=== PATIENT | male | born 1980 | race African-American/Black ===

== ENCOUNTER 2017-09-13 12:13 | Emergency (ER) | payer BC ==
[2017-09-13] MEDS ORDERED: Sodium Chloride 0.9% 10 ML Syringe FLUSH PRN ×2 (12:53→13:05)
[2017-09-13] MEDS ORDERED: Sodium Chloride 0.9% 1,000 ML IV SCH (13:00)
[2017-09-13] MEDS ORDERED: Iopamidol 612 MG/ML 150 ML Bottle IVPUSH ONE (13:05)
[2017-09-13] MEDS ORDERED: Diatrizoate Meglumine/Diatrizoate Sodium 37% 120 ML Bottle PO ONE (14:14)
--- NOTE | 2017-09-13 15:32 | CT ---
CT abdomen and pelvis Technique: Multiple axial sections were obtained from above the dome of the diaphragm inferiorly through the pubic symphysis. Intravenous and oral contrast was utilized. Delayed images were obtained through the bladder. Comparison: Small portion of the visualized lung bases are clear. Liver shows no focal parenchymal abnormality. Spleen appears within normal limits. Adrenal glands show no nodule. Pancreas is within normal limits. Kidneys show contrast-enhancement without hydronephrosis or mass. Aorta shows no aneurysmal dilatation. Gallbladder contains no calcified gallstones. No retroperitoneal adenopathy or mesenteric abnormalities are seen. No pelvic mass or adenopathy is seen. No bowel wall thickening is identified. Perirectal soft tissues are within normal limits. Appendix is seen which is normal in size. Delayed images shows contrast within the distal ureters and within the bladder. Bone window settings were reviewed which appears within normal limits for the patient's age. Impression: 1. No abnormality is identified on CT study of the abdomen and pelvis. Diagnostic code #1
--- NOTE | 2017-09-13 15:55 | EDM.PDOC ---
ED HPI GENERAL MEDICAL PROBLEM - General Chief Complaint: Gastrointestinal Problem Stated Complaint: RECTAL BLEED Time Seen by Provider: 09/13/17 12:26 Source of Information: Reports: Patient History Limitations: Reports: No Limitations - History of Present Illness INITIAL COMMENTS - FREE TEXT/NARRATIVE: The patient presents with rectal bleeding. He says this morning he woke up with blood in his bed. He has pain to the right rectal area. He has trouble with constipation. He denies fever, chills, cough, congestion, runny nose, chest pain, shortness of breath, nausea and vomiting. He does have some lower abdominal pain that is mild. He has some rectal pain and he feel a lump on the right side. Onset: Gradual Duration: Day(s): (3) Location: Reports: Abdomen Quality: Reports: Sharp Severity: Mild Improves with: Reports: None Worsens with: Reports: None Associated Symptoms: Denies: Chest Pain, Cough, Fever/Chills, Headaches, Nausea/ Vomiting, Shortness of Breath - Related Data Allergies Allergy/AdvReac Type Severity Reaction Status Date / Time No Known Allergies Allergy Verified 09/13/17 12:24 Home Meds: Home Meds . [No Known Home Meds] 09/13/17 [History] Past Medical History - Past Health History Medical/Surgical History: Denies Medical/Surgical History Social & Family History - Tobacco Use Smoking Status *Q: Never Smoker - Recreational Drug Use Recreational Drug Use: No ED ROS GENERAL - Review of Systems Review Of Systems: See Below Constitutional: Reports: No Symptoms HEENT: Reports: No Symptoms Respiratory: Reports: No Symptoms Cardiovascular: Reports: No Symptoms Endocrine: Reports: No Symptoms GI/Abdominal: Reports: Abdominal Pain. Denies: Nausea, Vomiting : Reports: No Symptoms Musculoskeletal: Reports: No Symptoms ED EXAM, GI/ABD - Physical Exam Exam: See Below Exam Limited By: No Limitations General Appearance: Alert, No Apparent Distress Ears: Normal External Exam Nose: Normal Inspection Head: Atraumatic, Normocephalic Neck: Normal Inspection Respiratory/Chest: No Respiratory Distress, Lungs Clear, Normal Breath Sounds Cardiovascular: Regular Rate, Rhythm, No Edema, No Murmur GI/Abdominal Exam: Soft, Non-Tender, No Organomegaly, No Mass Rectal (Males) Exam: Other (No active bleeding. Pain upon palpation to the right perirectal area.) Course - Vital Signs Last Recorded V/S: Last Vital Signs Temp 97.6 F 09/13/17 12:24 Pulse 66 09/13/17 12:24 Resp BP 125/79 09/13/17 12:24 Pulse Ox 99 09/13/17 12:24 - Orders/Labs/Meds Orders: Active Orders 24 hr Category Date Time Status Peripheral IV Care [RC] . DIRECTED Care 09/13/17 12:54 Active Sodium Chloride 0.9% [Normal Saline] 1,000 ml Med 09/13/17 13:00 Active IV ASDIRECTED Sodium Chloride 0.9% [Saline Flush] Med 09/13/17 12:53 Active 10 ml FLUSH ASDIRECTED PRN Sodium Chloride 0.9% [Saline Flush] Med 09/13/17 13:05 Active 10 ml FLUSH ONETIME PRN Peripheral IV Insertion Adult [OM.PC] Stat Oth 09/13/17 12:53 Ordered Medication Orders Sodium Chloride (Normal Saline) 1,000 mls @ 125 mls/hr IV ASDIRECTED EBONY Last Admin: 09/13/17 13:16 Dose: 125 mls/hr Sodium Chloride (Saline Flush) 10 ml FLUSH ASDIRECTED PRN PRN Reason: Keep Vein Open Last Admin: 09/13/17 13:17 Dose: 10 ml Sodium Chloride (Saline Flush) 10 ml FLUSH ONETIME PRN PRN Reason: IV FLUSH Last Admin: 09/13/17 14:12 Dose: 10 ml Labs: Laboratory Tests 09/13/17 09/13/17 Range/Units 13:05 13:05 WBC 10.65 H (4.23-9.07) K/mm3 RBC 5.02 (4.63-6.08) M/mm3 Hgb 15.6 (13.7-17.5) gm/L Hct 45.9 (40.1-51.0) % MCV 91.4 (79.0-92.2) fl MCH 31.1 (25.7-32.2) pg MCHC 34.0 (32.2-35.5) g/dl RDW Std Deviation 46.5 H (35.1-43.9) fL Plt Count 317 (163-337) K/mm3 MPV 10.5 (9.4-12.3) fl Neut % (Auto) 62.8 (34.0-67.9) % Lymph % (Auto) 26.2 (21.8-53.1) % Mercer % (Auto) 8.8 (5.3-12.2) % Eos % (Auto) 1.5 (0.8-7.0) Baso % (Auto) 0.4 (0.1-1.2) % Neut # (Auto) 6.69 H (1.78-5.38) K/mm3 Lymph # (Auto) 2.79 (1.32-3.57) K/mm3 Mercer # (Auto) 0.94 H (0.30-0.82) K/mm3 Eos # (Auto) 0.16 (0.04-0.54) K/mm3 Baso # (Auto) 0.04 (0.01-0.08) K/mm3 Sodium 142 (136-145) mEq/L Potassium 3.7 (3.5-5.1) mEq/L Chloride 104 (98-107) mEq/L Carbon Dioxide 28 (21-32) mEq/L Anion Gap 13.7 (5-15) BUN 9 (7-18) mg/dL Creatinine 0.9 (0.7-1.3) mg/dL Est Cr Clr Drug Dosing 125.74 mL/min Estimated GFR (MDRD) > 60 (>60) mL/min BUN/Creatinine Ratio 10.0 L (14-18) Glucose 85 (74-106) mg/dL Calcium 9.4 (8.5-10.1) mg/dL Total Bilirubin 0.4 (0.2-1.0) mg/dL AST 24 (15-37) U/L ALT 26 (16-63) U/L Alkaline Phosphatase 98 (46-116) U/L Total Protein 8.5 H (6.4-8.2) g/dl Albumin 4.2 (3.4-5.0) g/dl Globulin 4.3 gm/dL Albumin/Globulin Ratio 1.0 (1-2) Lipase 84 (73-393) U/L Meds: Medications Generic Name Dose Route Start Last Admin Trade Name Freq PRN Reason Stop Dose Admin Sodium Chloride 1,000 mls @ 125 mls/hr 09/13/17 13:00 09/13/17 13:16 Normal Saline IV 125 mls/hr ASDIRECTED EBONY Administration Sodium Chloride 10 ml 09/13/17 12:53 09/13/17 13:17 Saline Flush FLUSH 10 ml ASDIRECTED PRN Administration Keep Vein Open Sodium Chloride 10 ml 09/13/17 13:05 09/13/17 14:12 Saline Flush FLUSH 10 ml ONETIME PRN Administration IV FLUSH Discontinued Medications Generic Name Dose Route Start Last Admin Trade Name Freq PRN Reason Stop Dose Admin Diatrizoate Meglum/Diatrizoate Sod 120 ml 09/13/17 14:14 09/13/17 14:14 Gastrografin 37% PO 09/13/17 14:15 90 ml ONETIME ONE Administration Iopamidol 150 ml 09/13/17 13:05 09/13/17 14:12 Isovue-300 (61%) IVPUSH 09/13/17 13:06 125 ml ONETIME ONE Administration - Re-Assessments/Exams Free Text/Narrative Re-Assessment/Exam: 09/13/17 15:55 I ordered an IV NS, labs and a CT of his abdomen and pelvis. His WBC was slightly elevated. His CMP looks good. His CT shows nothing acute. I will have him take a stool softner and follow up with Dr Tapia. Departure - Departure Time of Disposition: 15:56 Disposition: Home, Self-Care 01 Condition: Good Clinical Impression: Perirectal abscess - Discharge Information Referrals: Ronnie Tapia MD [Physician] - 1 Week Additional Instructions: Take some colace daily and drink plenty of fluids. Please return if you are worse. Follow up with Dr Tapia within the week. - My Orders Last 24 Hours: My Active Orders 09/13/17 12:53 Sodium Chloride 0.9% [Saline Flush] 10 ml FLUSH ASDIRECTED PRN Peripheral IV Insertion Adult [OM.PC] Stat 09/13/17 12:54 Peripheral IV Care [RC] . DIRECTED 09/13/17 13:00 Sodium Chloride 0.9% [Normal Saline] 1,000 ml IV ASDIRECTED 09/13/17 13:05 Sodium Chloride 0.9% [Saline Flush] 10 ml FLUSH ONETIME PRN - Assessment/Plan Last 24 Hours: My Active Orders 09/13/17 12:53 Sodium Chloride 0.9% [Saline Flush] 10 ml FLUSH ASDIRECTED PRN Peripheral IV Insertion Adult [OM.PC] Stat 09/13/17 12:54 Peripheral IV Care [RC] . DIRECTED 09/13/17 13:00 Sodium Chloride 0.9% [Normal Saline] 1,000 ml IV ASDIRECTED 09/13/17 13:05 Sodium Chloride 0.9% [Saline Flush] 10 ml FLUSH ONETIME PRN
== END 2017-09-13 16:15 | disposition home or self-care (01) ==
LOC: JD.ED 12:13
DX: K61.1 Rectal abscess (principal)
CPT/HCPCS: 36415; 74177; 80053; 83690; 85025; 96360; 96361; 99284; J7040; J7050; Q9963; Q9967